=== PATIENT | male | born 1985 | race Two or more races ===

== ENCOUNTER → 2022-06-23 | Outpatient (CLI) | payer OTHER ==
--- NOTE | 2022-06-23 20:41 | CT ---
EXAMINATION TYPE: CT wrist LT wo con CT DLP: 196.2 mGycm, Automated exposure control for dose reduction was used. DATE OF EXAM: 06/23/2022 4:52 PM COMPARISON: None CLINICAL INDICATION:Male, 37 years old with history of S63.263A; PHH, dislocation TECHNIQUE: Axial images were obtained of the left wrist. Additional coronal and sagittal reformatted images and soft tissue and bone window were obtained for review. 3-D reconstruction was created on a separate workstation. Contrast used: None Oral contrast used: None FINDINGS: Acute fracture of the base of the second metacarpal both with osseous fragment posteriorly series 7 i mage 29 and more on the radial aspect series 6 image 9. These are intra-articular fractures. Acute fracture also present involving the anterior aspect of the base of the third digit with displac ement and intra-articular extension. Possible osseous fragment seen on the posterior aspect of the carpal metacarpal joint of the fourth d igit series 7 image 41. The radius and ulna are intact. Phalanges are intact. Mild soft tissue swelling around the fractures. IMPRESSION: Acute fractures of the second and third digit metacarpals at the base with intra-articular extension.
== END | disposition home or self-care (01) ==
LOC: RADCTMAIN 16:31
PROVIDERS: ATTEND Orthopaedic Surgery Hand Surgery
DX: S62.301A Unspecified fracture of second metacarpal bone, left hand, initial encounter for closed fracture (principal); S62.302A Unspecified fracture of third metacarpal bone, right hand, initial encounter for closed fracture; S63.263A Dislocation of metacarpophalangeal joint of left middle finger, initial encounter